=== PATIENT | male | born 1945 | race Two or more races ===

== ENCOUNTER 2020-08-11 16:45 | Emergency (ER) | payer MEDICARE, MEDICAID ==
[~2020-08-11] VITALS: Ht 175.3 cm; Wt 75.0 kg
[~2020-08-11 16:45] MED LIST: AZO1OS RIGHTEYE; BIMA2.5D OP; BRIM5DRO2 OP; CLOP75TA35 PO; DOCU250C31 PO; FLO0.4C PO; GABA-532 PO; INSU100C10 SQ; SIMV10TA2 PO
[2020-08-11 17:38] LABS: BASOPHILS % (AUTO) 0.5 % (0-1); EOSINOPHILS # (AUTO) 0.1 X10'3 (0-0.9); EOSINOPHILS % (AUTO) 0.9 % (0-6); HEMATOCRIT 44.4 % (42.0-52.0); LYMPHOCYTES # (AUTO) 1.5 X10'3 (1.1-4.8); LYMPHOCYTES % (AUTO) 26.6 % (21-51); MEAN CORPUSCULAR HEMOGLOBIN 31.3 PG (27.0-31.0); MEAN CORPUSCULAR HGB CONC 33.8 g/dL (33.0-36.5); MEAN CORPUSCULAR VOLUME 92.7 FL (78-98); MEAN PLATELET VOLUME 8.1 FL (7.4-10.4); MONOCYTES # (AUTO) 0.5 X10'3 (0-0.9); MONOCYTES % (AUTO) 8.4 % (2-12); NEUTROPHILS # (AUTO) 3.5 X10'3 (1.8-7.7); NEUTROPHILS % (AUTO) 63.6 % (42-75); PLATELET COUNT 210 X10'3 (140-440); RED CELL DISTRIBUTION WIDTH 13.8 % (11.5-14.5); WHITE BLOOD COUNT 5.6 X10'3 (4.5-11.0)
[2020-08-11 17:44] LABS: PARTIAL THROMBOPLASTIN TIME 27 SECONDS (22-32)
[2020-08-11 17:47] LABS: ALANINE AMINOTRANSFERASE 21 U/L (12-78); ALBUMIN 3.8 G/DL (3.4-5.0); ALKALINE PHOSPHATASE 93 IU/L (46-116); ANION GAP 7 (8-16); ASPARTATE AMINO TRANSFERASE 13 U/L (10-37); BILIRUBIN,TOTAL 0.4 MG/DL (0.1-1.0); BLOOD UREA NITROGEN 15 MG/DL (7-18); BUN/CREATININE RATIO 17.2 (5.4-32.0); CALCIUM 9.3 MG/DL (8.5-10.1); CHLORIDE 104 MMOL/L (99-107); CREATININE 0.87 MG/DL (0.60-1.10); GLUCOSE 185 MG/DL (70-104); SODIUM 141 MMOL/L (135-145); TOTAL CARBON DIOXIDE 30.2 MMOL/L (24-32); TOTAL PROTEIN 7.7 G/DL (6.4-8.2); eGFR 86 ML/MIN
[2020-08-11 17:53] LABS: MAGNESIUM 2.3 MG/DL (1.5-2.4)
[2020-08-11] MEDS ORDERED: cloNIDine 0.1 mg tablet PO ONE (18:30)
[2020-08-11] MEDS ORDERED: METO-539 PO (20:25)
--- NOTE | 2020-08-11 20:39 | NUR ---
PATIENT CAREGIVER HUYEN PHONE # [phone] CONTACTED FOR UPDATE , VERBALIZED PATIENT WILL BE GETTING DISCHARGED HUYEN SAID TO CALL [facility] , OPERATOR AUTOMATED PROCESS CALLED AWAITING RETURN PHONE CALL TO CONFIRM PATIENT WILL BE ACCEPTED BY [facility] FOR TRANSPORTATION
--- NOTE | 2020-08-11 20:54 | NUR ---
UPDATED CAREGIVER OF NO PRIOR HX WITH [facility], VERBALIZED OKAY WITH PAYING OUT OF POCKET AND TO GET HIM HOME
--- NOTE | 2020-08-11 21:37 | NUR ---
PATIENT WILL NOT BE ABLE TO USE MEDICAL TRANSPORTATION DUE TO [facility] NOT ACCEPTING PATIENT FOR TRANSFER OTHER TRANSPORT VAN'S WILL NOT TRANSFER AT [facility] UNLESS IT IS TO A MEDICAL FACILITY, NURSE COMMUNITY LIVING INSTRUCTOR VERBALIZED OK TO CAB PATIENT HOME WITH CAGE TENDER AND TO CAB CAGE TENDER BACK TO ER,CN AWARE
[2020-08-11 22:12] VITALS: BP 179/88
== END 2020-08-11 22:13 | disposition home or self-care (01) ==
LOC: ER 16:46
DX: I10 Essential (primary) hypertension (principal); E11.9 Type 2 diabetes mellitus without complications; Z79.4 Long term (current) use of insulin; Z79.899 Other long term (current) drug therapy
CPT/HCPCS: 36415; 71045; 80053; 83735; 83880; 84484; 85025; 85610; 85730; 93005; 99285